=== PATIENT | male | born 1995 | race Caucasian/White ===

== ENCOUNTER 2023-10-11 10:46 | Emergency (ER) | payer OTHER, SELFPAY ==
[2023-10-11 11:05] VITALS: BP 136/80; PULSE 105; RESP 16; TEMP 37.2; O2SAT 100
--- NOTE | 2023-10-11 11:10 | ED.WOUNDLAC ---
HPI - Wound/Laceration General Chief Complaint: Wound/Laceration Stated Complaint: Right Ear Injury Time Seen by Provider: 10/11/23 11:20 Source: patient and RN notes reviewed Mode of arrival: ambulatory Limitations: no limitations History of Present Illness HPI narrative: 28-year-old male presents with concern for fall and, neck pain, ear injury. Reports prior to arrival he was at work on a ladder when he has slid down the ladder approximately 6 ft, when he landed he fell over and hit the right side of his head on a metal table. He reports he felt woozy for a few minutes but did not pass out. He reports injury to the ear. He denies loss of consciousness, headache. Reports right-sided neck pain radiating to the shoulder. Denies numbness, tingling, weakness in any extremity. Location: face Related Data Allergies Allergy/AdvReac Type Severity Reaction Status Date / Time No Known Allergies Allergy Unverified 01/05/19 04:21 Review of Systems Review of Systems: CONSTITUTIONAL: Denies malaise, chills, sweats, or fever. SKIN: Reports laceration to the right earlobe MUSCULOSKELETAL: Reports right neck pain NEUROLOGIC: Denies numbness, weakness All systems reviewed & are unremarkable except as noted in HPI and below PMFSH Family History Family History (Updated 07/22/16 @ 13:09 by DOCTOR UNKNOWN) Mother Patient's mother is in good health Father Family history unknown Social History Social History Smoking status: Never smoker Second hand tobacco smoke exposure: No Alcohol intake: current Comments At time of signature, agree with nursing past medical, surgical, social and family history. There is no relevant family history pertinent to the presenting complaint Exam Narrative: GENERAL: Well-appearing, well-nourished, and in no acute distress. HEAD: Normocephalic EYES: PERRLA, conjunctivae clear NECK: In C-collar due to neck pain/injury CHEST: Speaks in full sentences. No respiratory distress. HEART: Regular rate and rhythm. Normal and equal peripheral pulses. EXTREMITIES: Strength, sensation, range of motion equal bilaterally in upper and lower extremities SKIN: Warn, dry, intact, pink. 2 cm linear laceration to the earlobe into the subcutaneous tissue, not involving the cartilage NEURO: Alert and oriented x3. PSYCH: Normal mood and affect HENMT: Outer ear/TM images: 1. Laceration into the subcutaneous tissue Course Course Emergency Course: C-Collar placed Patient is aware of diagnosis, understands and agrees to treatment plan. Anticipatory guidance given. Patient agrees to follow-up as directed and is aware of reasons to seek care at the emergency department. Portions of this record may have been created with voice recognition software Level of Care: Express Care Visit Vital Signs Vital signs: Vital Signs Temperature 98.9 F 10/11/23 11:05 Pulse Rate 105 H 10/11/23 11:05 Respiratory Rate 16 10/11/23 11:05 Blood Pressure 136/80 10/11/23 11:05 Pulse Oximetry 100 10/11/23 11:05 Oxygen Delivery Room Air 10/11/23 11:05 Temperature 98.9 F 10/11/23 11:05 Pulse Rate 105 H 10/11/23 11:05 Respiratory Rate 16 10/11/23 11:05 Blood Pressure 136/80 10/11/23 11:05 Pulse Oximetry 100 10/11/23 11:05 Oxygen Delivery Room Air 10/11/23 11:05 Reviewed. Transfer Transfered to: Ángel Transfer rationale: Neck pain after fall <5ft Accepting physician: Michael Aldana comments: private vehicle, driven by friend Procedures Laceration Laceration 1: Date: 10/11/23 Time: 11:23 Site: other (ear) Side (If applicable): right Size (cm): 2 Description: linear Depth: simple, single layer Local Anesthetic: lidocaine 1% Amount of anesthesia used (mL): 2 Pre-repair: wound explored and irrigated ====== Skin Level ====== Skin layer closed with: nylon Size (cm): 5-0
[2023-10-11] MEDS: ACETAMINOPHEN 500 MG TABLET 1000 MG PO (11:49)
== END 2023-10-11 11:58 | disposition short-term general hospital (02) ==
PROVIDERS: Emergency Provider Nurse Practitioner
DX: S01.311A Laceration without foreign body of right ear, initial encounter (principal); M54.2 Cervicalgia; W10.9XXA Fall (on) (from) unspecified stairs and steps, initial encounter; Y99.0 Civilian activity done for income or pay
CPT/HCPCS: 12011; 99213; A9270; G0463; L0140

== ENCOUNTER 2023-10-11 12:17 | Emergency (ER) | payer OTHER, SELFPAY ==
--- NOTE | ~2023-10-11 | CT_ITS ---
EXAMINATION: CT brain wo con DATE: 10/11/2023 14:57 INDICATION: fall . TECHNIQUE: Computed tomography (CT) of the head was performed without intravenous contrast. The mA wa s adjusted according to patient size. Iterative reconstruction technique was employed. The dose-lengt h product was 605.33 mGy-cm. COMPARISON: None. FINDINGS: No acute intracranial hemorrhage or extra-axial fluid collection. No hydrocephalus, mass, or herniation. No acute ischemic infarct. Unremarkable dural venous sinus attenuation. No acute osseous abnormality. Ethmoid and bilateral maxillary mucosal thickening, the remaining aerated spaces are clear. IMPRESSION: No acute intracranial process. Reviewed, dictated and finalized at location K. [employer]
--- NOTE | ~2023-10-11 | CT_ITS ---
EXAMINATION: CT cervical spine wo con DATE: 10/11/2023 14:57 INDICATION: neck pain, fall TECHNIQUE: Computed tomography (CT) of the cervical spine was performed without intravenous contrast. Automated exposure control and iterative reconstruction technique were employed. The dose-length pro duct was 212.43 mGy-cm. COMPARISON: None. FINDINGS: Vertebral Body Alignment: Intact. Minimal reversal of the cervical lordosis centered at C5. Craniocervical and atlantoaxial alignment: No significant degenerative change. Alignment intact. Osseous structures/fracture: No evidence of a lytic or blastic process in the visualized spine. No e vidence of acute fracture. Cervical soft tissues: The paraspinal soft tissues planes are maintained. Biapical pleural scarring. Degenerative changes: Mild degenerative disc disease at C5-6. IMPRESSION: No acute fracture or traumatic malalignment in the cervical spine. Reviewed, dictated and finalized at location K. [employer]GN STUDENT ADVIS[employer]
[2023-10-11 12:33] VITALS: BP 140/70; PULSE 85; RESP 16; TEMP 36.8; O2SAT 99
--- NOTE | 2023-10-11 15:29 | ED.NECK ---
HPI - Neck Pain/Injury General Chief Complaint: Neck Pain/Injury Stated Complaint: fall/ear laceration Time Seen by Provider: 10/11/23 14:37 Source: patient Mode of arrival: ambulatory Limitations: no limitations History of Present Illness HPI Narrative: 28-year-old otherwise healthy who was sent in from urgent care with complaints of neck pain. Patient states that he fell of the ladder about 6 ft hit her left side of his ear sustained a laceration which was repaired at urgent care but still continues to have pain in the neck he was sent to ER for CT scan and for further evaluate. Patient states that he felt woozy after a fall but did not pass out. He denies any nausea or vomiting. No other injuries. MD complaint: neck pain and neck injury Place: work Radiation: right lateral and upper back Severity: moderate Quality: aching Duration: constant Relieving factors: none Context: fall Associated symptoms: none Treatments prior to arrival: cervical collar Related Data Allergies Allergy/AdvReac Type Severity Reaction Status Date / Time No Known Allergies Allergy Verified 10/11/23 12:29 Review of Systems Review of Systems: All systems reviewed & are unremarkable except as noted in HPI and below Constitutional: Constitutional: Reports no additional constitutional complaints Eyes: Eyes: Reports no additional eye complaints ENT: Reports system reviewed and no additional complaints, except as documented Cardiovascular: Cardiovascular: Reports no additional cardiovascular complaints Respiratory: Respiratory: Reports no additional respiratory complaints Gastrointestinal: Gastrointestinal: Reports no additional gastrointestinal complaints Musculoskeletal: Musculoskeletal: Reports as per HPI Neurologic: Reports system reviewed and no additional complaints, except as documented PMFSH Family History Family History Mother Patient's mother is in good health Father Family history unknown Social History Social History Smoking status: Never smoker Second hand tobacco smoke exposure: No Alcohol intake: current Exam Narrative: GENERAL: Well-appearing, well-nourished, and in no acute distress. HEAD: Normocephalic, atraumatic. EYES: PERRLA and EOMI. ENT: Nares clear, no rhinorrhea or epistaxis. Mucous membranes moist. NECK: Supplein C collar CHEST: Clear to auscultation. No respiratory distress. HEART: Regular rate and rhythm. No murmur heard. Normal peripheral pulses. ABDOMEN: Soft, nontender, nondistended, normal active bowel sounds. EXTREMITIES: Normal range of motion. No edema. SKIN: Warm, dry, no rash. NEURO: No focal deficits. Alert and oriented x3. PSYCH: Normal mood and affect. Course Course Emergency Course: Notified patient about his CT findings. Recommended to take ibuprofen for pain, follow-up with his primary doctor as needed Vital Signs Vital signs: Vital Signs Temperature 36.8 C 10/11/23 12:33 Pulse Rate 85 10/11/23 12:33 Respiratory Rate 16 10/11/23 12:33 Blood Pressure 140/70 10/11/23 12:33 Pulse Oximetry 99 10/11/23 12:33 Oxygen Delivery Room Air 10/11/23 12:33 Temperature 36.8 C 10/11/23 12:33 Pulse Rate 85 10/11/23 12:33 Respiratory Rate 16 10/11/23 12:33 Blood Pressure 140/70 10/11/23 12:33 Pulse Oximetry 99 10/11/23 12:33 Oxygen Delivery Room Air 10/11/23 12:33 MDM - Neck Pain/Injury MDM Narrative Medical decision making narrative: 28-year-old with a fall now having neck pain will obtain a CT of the head and C-spine his laceration of the right ear has been repaired at urgent care which presently does not take any tension. Differential Diagnosis Differential diagnosis: Likely disc disorder of cervical region, whiplash injury to neck, closed subluxation of cervical spine and fracture of cervical spine without lesion of spinal
[2023-10-11] MEDS: HYDROcodone/acetaminophen (*CRX) 5-325 MG TABLET 1 TAB PO (15:35)
[2023-10-11 15:43] VITALS: BP 130/70; PULSE 76; RESP 20; O2SAT 100
== END 2023-10-11 15:45 | disposition home or self-care (01) ==
PROVIDERS: Emergency Provider Family Medicine
DX: M54.2 Cervicalgia (principal); S16.1XXA Strain of muscle, fascia and tendon at neck level, initial encounter; W11.XXXA Fall on and from ladder, initial encounter
CPT/HCPCS: 70450; 72125; 99284; A9270; L0140

== ENCOUNTER 2023-12-14 09:03 | Emergency (ER) | payer BC, SELFPAY ==
[2023-12-14 09:16] VITALS: BP 133/80; PULSE 77; RESP 16; TEMP 36.4; O2SAT 100
--- NOTE | 2023-12-14 09:44 | ED.GENADULT ---
HPI - General Adult General Chief complaint: Upper Respiratory Infection Stated complaint: dizziness,SOB,chest pain,fatigue Time Seen by Provider: 12/14/23 09:28 Source: patient and RN notes reviewed Mode of arrival: ambulatory Limitations: no limitations History of Present Illness HPI narrative: Patient presents today complaining of a severe headache that started 3 days ago and lasted 24-48 hours which included photophobia and 1 episode of vomiting. At that time he also experienced sweats, chills, subjective fever. After resolution of the headache patient started experiencing nasal congestion and sinus pressure with fatigue, body aches, dizziness, left-sided chest pain with shortness of breath with exertion. Denies cough or sore throat. Denies diarrhea or any further vomiting. He currently rates his discomfort 4/10 and has been taking allergy medication, cold and flu medicine as well as Tylenol with some relief. History of tonsillectomy and adenoidectomy, ADHD medicine medicated. Patient vapes. No history of asthma or COPD. Related Data Allergies Allergy/AdvReac Type Severity Reaction Status Date / Time No Known Allergies Allergy Verified 12/14/23 09:13 Review of Systems Review of Systems: CONSTITUTIONAL:+ fever, body aches, fatigue, sweats, chills EYES: Denies visual changes, redness, or discharge. ENT: Denies sore throat, or otalgia.+ rhinorrhea, congestion CARDIOVASCULAR: Denies palpitations, or edema.+ chest pain RESPIRATORY: Denies cough.+ shortness of breath with exertion GASTROINTESTINAL: Denies abdominal pain, nausea, vomiting, or diarrhea. GENITOURINARY: Denies dysuria or hematuria. SKIN: Denies rash, itching, or wounds. MUSCULOSKELETAL: Denies back pain, joint pain, or myalgia. NEUROLOGIC: Denies numbness, tingling, or weakness.+ dizziness, headache-resolved PSYCH: Denies depression or anxiety. [facility] Family History Family History Mother Patient's mother is in good health Father Family history unknown Social History Social History (Updated 12/14/23 @ 09:47 by SONALI Rincon, ) Smoking status: Current every day smoker Tobacco type: e-cigarettes/vaping Second hand tobacco smoke exposure: No Alcohol intake: current Exam Narrative: GENERAL: Well-appearing, well-nourished, and in no acute distress. HEAD: Normocephalic, atraumatic. EYES: EOMI. PERRL. No nystagmus. No redness or drainage. Conjunctivae normal. ENT: Mucous membranes pink and moist. Nares clear. + rhinorrhea. TMs normal bilaterally. Throat normal. Uvula midline. NECK: Normal AROM. Supple. No lymphadenopathy. CHEST: No respiratory distress. Clear to auscultation. Chest is nontender HEART: Regular rate and rhythm. No murmur appreciated. Normal peripheral pulses. EXTREMITIES: Normal range of motion. No edema. Hand interactive media marketing director equal and strong. Dorsiflexion and plantar flexion equal and strong against resistance SKIN: Warm, dry, no rash. Capillary refill normal. Normal skin turgor. NEURO: No focal deficits. Alert and oriented x3. Gait steady. No drift. PSYCH: Normal affect. No signs of depression or anxiety. Course Course Level of Care: Express Care Visit Vital Signs Vital signs: Vital Signs Temperature 97.5 F L 12/14/23 09:16 Pulse Rate 77 12/14/23 09:16 Respiratory Rate 16 12/14/23 09:16 Blood Pressure 133/80 12/14/23 09:16 Pulse Oximetry 100 12/14/23 09:16 Oxygen Delivery Room Air 12/14/23 09:16 Temperature 97.5 F L 12/14/23 09:16 Pulse Rate 77 12/14/23 09:16 Respiratory Rate 16 12/14/23 09:16 Blood Pressure 133/80 12/14/23 09:16 Pulse Oximetry 100 12/14/23 09:16 Oxygen Delivery Room Air 12/14/23 09:16 Reviewed Medical Decision Making MDM Narrative Medical decision making narrative: Influenza B positive. Discussed results with patient and as well as suggestions for OTC meds. Will send
== END 2023-12-14 10:06 | disposition home or self-care (01) ==
PROVIDERS: Emergency Provider Nurse Practitioner
DX: J10.1 Influenza due to other identified influenza virus with other respiratory manifestations (principal); F17.290 Nicotine dependence, other tobacco product, uncomplicated; Z20.822 Contact with and (suspected) exposure to COVID-19
CPT/HCPCS: 87426; 87804; 99213; G0463

== ENCOUNTER 2024-07-04 15:15 | Emergency (ER) | payer BC, SELFPAY ==
[2024-07-04 15:23] VITALS: BP 131/85; PULSE 119; RESP 19; TEMP 37.2; O2SAT 100
--- NOTE | 2024-07-04 16:40 | ED.GENADULT ---
HPI - General Adult General Chief complaint: Anxiety Stated complaint: Anxiety/ Fast Heart Rate Time Seen by Provider: 07/04/24 15:40 Source: patient and RN notes reviewed Mode of arrival: ambulatory Limitations: no limitations History of Present Illness HPI narrative: Patient presents today complaining of panic attack. Symptoms include shortness of breath, unable to get a deep breath, headache, jitteriness. He woke up in the middle of the night last night complaining of chest pain, racing heart. He called 911 and was evaluated by paramedics in his home. He declined EMS transport at that time and went back to sleep for couple of hours. The rest of the day he states he has had low level anxiety but wanted to come in for evaluation this evening. He has had panic attacks in the past. Is not currently on any medication for anxiety. Related Data Allergies Allergy/AdvReac Type Severity Reaction Status Date / Time No Known Allergies Allergy Verified 07/04/24 15:17 Review of Systems Review of Systems: CONSTITUTIONAL: Denies body aches, fever, chills, or sweats. EYES: Denies visual changes, redness, or discharge. ENT: Denies rhinorrhea, congestion, sore throat, or otalgia. CARDIOVASCULAR: Denies chest pain, palpitations, or edema. RESPIRATORY: Denies cough. + shortness of breath GASTROINTESTINAL: Denies abdominal pain, nausea, vomiting, or diarrhea. GENITOURINARY: Denies dysuria or hematuria. SKIN: Denies rash, itching, or wounds. MUSCULOSKELETAL: Denies back pain, joint pain, or myalgia. NEUROLOGIC: Denies numbness, tingling, or weakness.+ headache PSYCH: + anxiety [facility] Family History Family History Mother Patient's mother is in good health Father Family history unknown Social History Social History Smoking status: Current every day smoker Tobacco type: e-cigarettes/vaping Second hand tobacco smoke exposure: No Alcohol intake: current Substance use type: marijuana Comments At time of signature, I have reviewed and agree with nursing past medical, surgical, social and family history unless otherwise noted. Please see nursing chart for further information. There is no relevant family history pertinent to the presenting complaint Exam Narrative: GENERAL: Well-appearing, well-nourished, and in no acute distress. HEAD: Normocephalic, atraumatic. EYES: EOMI. No redness or drainage. Conjunctivae normal. ENT: Mucous membranes pink and moist. NECK: Normal AROM. CHEST: No respiratory distress. Clear to auscultation. HEART: Regular rate and rhythm. No murmur appreciated. EXTREMITIES: Normal range of motion. No edema. SKIN: Warm, dry, no rash. Capillary refill normal. Normal skin turgor. NEURO: No focal deficits. Alert and oriented x3. Gait steady. PSYCH: Mildly anxious Course Course Level of Care: Express Care Visit Vital Signs Vital signs: Vital Signs Temperature 98.9 F 07/04/24 15:23 Pulse Rate 119 H 07/04/24 15:23 Respiratory Rate 19 07/04/24 15:23 Blood Pressure 131/85 07/04/24 15:23 Pulse Oximetry 100 07/04/24 15:23 Oxygen Delivery Room Air 07/04/24 15:23 Temperature 98.9 F 07/04/24 15:23 Pulse Rate 119 H 07/04/24 15:23 Respiratory Rate 19 07/04/24 15:23 Blood Pressure 131/85 07/04/24 15:23 Pulse Oximetry 100 07/04/24 15:23 Oxygen Delivery Room Air 07/04/24 15:23 Reviewed Medical Decision Making MDM Narrative Medical decision making narrative: Patient states his anxiety has somewhat decreased during his visit here today. Heart rate is down to 90 during my exam. Will prescribe some hydroxyzine for some symptom control. Patient will call and schedule a follow-up visit with his PCP. ED precautions given. Differential Diagnosis Differential Diagnosis: Panic attack, anxiety Vital Signs Vital Signs: Vital Signs
[2024-07-04 16:45] VITALS: PULSE 90
== END 2024-07-04 16:50 | disposition home or self-care (01) ==
PROVIDERS: Emergency Provider Nurse Practitioner
DX: F41.9 Anxiety disorder, unspecified (principal); F17.290 Nicotine dependence, other tobacco product, uncomplicated; F12.90 Cannabis use, unspecified, uncomplicated
CPT/HCPCS: 99213; G0463

== ENCOUNTER 2025-08-18 10:14 | Emergency (ER) | payer OTHER, SELFPAY ==
--- NOTE | 2025-08-18 10:15 | ED_ITS ---
HPI - Back Pain/Injury General Chief Complaint: Back Pain/Injury Stated Complaint: Back Pain Time Seen by Provider: 08/18/25 10:14 Source: patient Mode of arrival: ambulatory Limitations: no limitations History of Present Illness HPI Narrative: Andrei is a 30-year-old male patient presenting to the clinic today with complaints of low back pain x1 day. He reports he was trying to jump to reach a tree limb yesterday to cut it down and felt a pull in his back. Took 400mg of Ibuprofen yesterday and this morning- has also applied heat and ice. Has difficulty getting up this morning out of bed due to the pain. Rates pain 7/10 currently. Pain worsen with movement. No saddles anesth or loss of bowel/bladder. Related Data Allergies Allergy/AdvReac Type Severity Reaction Status Date / Time No Known Allergies Allergy Verified 08/18/25 10:25 Review of Systems Review of Systems: Pertinent positives per HPI. Patient denies any fever, chills, rash, headache, visual changes, dizziness, cough, runny nose, sore throat, shortness of breath, chest pain, palpitations, nausea, vomiting, diarrhea, constipation, abdominal pain, or any urinary issues. [facility] Past Medical History Medical History Anxiety Family History Family History Mother Patient's mother is in good health Father Family history unknown Grandparent Alcoholism in family member Hypertension Social History Social History Social History: caffeine: A few sodas a day and a energy drink every once in a while Smoking status: Current every day smoker Tobacco type: e-cigarettes/vaping Second hand tobacco smoke exposure: No Alcohol intake: never Substance use: former Substance use type: marijuana Do You Feel Safe in your Home?: Yes Lack of Transportation: No Lack of Food: Never True Current Housing: I Have Housing Concerned About Future Housing: No Difficulty Paying Gas/Electric Bills: No Difficulty Paying for Meds: No Currently Unemployed: No Education: High School Diploma/GED Difficulty w/ Childcare or Family Care: No Living arrangements: with roommate(s) Occupation/Education: occupation Gender identity (if verbalized by the patient): Male Sexual Orientation (if Verbalized by the Patient): Straight or Heterosexual Agree to blood products: Yes Comments At the time of my signature, I reviewed and agree with the nursing past medical, surgical, social, and family history. There is no relevant family history pertinent to the patient complaint. Exam Narrative: General: Well-developed, well nourished, in no apparent distress Head: Normocephalic, atraumatic. Cardio: Regular rate and rhythm, s1 and s2 normal, no murmur appreciated. Resp: Clear to auscultation bilaterally, no rhonchi, rales, wheezing or rubs. Musculoskeletal: No deformity, low back/paraspinous musculatures tender to palpation bilaterally, limited range of motion due to pain with flexion and extension of the low back, muscle strength strong and equal in BLE. SLT positive on the right at approximately 20? and positive on the left at approximately 45?, patellar reflexes 2/4 bilaterally, negative foot drop, cautious moving gait and station Course Course Emergency Course: Portions of this record may have been created with voice recognition software. Level of Care: Express Care Visit Vital Signs Vital signs: Vital Signs Temperature 37.1 C 08/18/25 10:24 Pulse Rate 91 08/18/25 10:24 Respiratory Rate 18 08/18/25 10:24 Blood Pressure 129/84 08/18/25 10:24 Pulse Oximetry 100 08/18/25 10:24 Oxygen Delivery Room Air 08/18/25 10:24 Temperature 37.1 C 08/18/25 10:24 Pulse Rate 91 08/18/25 10:24 Respiratory Rate 18 08/18/25 10:24 Blood Pressure 129/84 08/18/25 10:24 Pulse Oximetry 100 08/18/25 10:24 Oxygen Delivery Room Air 08/18/25 10:24 Vital signs reviewed MDM - Back Pain/Injury MDM Narrative Medical decision making narrative: At the time of visit patient is resting comfortably on the exam table. Patient appears to be nontoxic. Complaints of low back pain x1 day. He reports he was trying to jump to reach a tree limb yesterday to cut it down and felt a pull in his back. Took 400mg of Ibuprofen yesterday and this morning- has also applied heat and ice. Has difficulty getting up this morning out of bed due to the pain. Rates pain 7/10 currently. Pain worsen with movement. No saddles anesth. or loss of bowel/bladder. On exam patient has tenderness to palpation over the lumbar spine and over the paraspinous musculature bilaterally, pain with straight leg test on the right at approximately 20? and 45? on the left, negative for foot drop, patellar reflexes 2+ bilaterally, pain with bending and standing. Plan: I suspect patient has low back strain/acute low back pain. Description for Medrol Dosepak and baclofen was sent to the pharmacy. Work note was given. Supportive measures were discussed with the patient and they voiced understanding discharge instructions and agrees to treatment plan. Return precautions reviewed Differential Diagnosis Differential diagnosis: Likely lumbar radiculopathy, sciatica, strain of lumbar region, discitis and other (Vertebral fracture) Discharge Plan Discharge Clinical Impression: Acute bilateral low back pain Qualifiers: Sciatica presence: without sciatica Qualified Code(s): M54.50 - Low back pain, unspecified Acute myofascial strain of lumbosacral region Qualifiers: Encounter type: initial encounter Qualified Code(s): S39.012A - Strain of muscle, fascia and tendon of lower back, initial encounter Patient Disposition: Home Condition: Stable Instructions: Antibiotic Form, Low Back Strain (ED), Lower Back Exercises (ED) Additional Instructions: Take any prescription medication only as prescribed-baclofen and Medrol Dosepak Be mindful of sedation precautions given to you if taking a muscle relaxer. May use heat or ice to the affected area Consider massage or chiropractor adjustment if this was discussed with provider May use blue emu, lidocaine patches, or asper cream to affected area- do not ap ply heat or ice directly over cream- can cause burn. Complete appropriate back stretching exercises. Follow up with your PCP in 3-5 days if symptom persist. Patient Language: Pashto Prescriptions: New methylprednisolone [Medrol (Bill)] 4 mg tablets,dose pack See Rx Instructions PO .COMPLEX Qty: 21 0RF Rx Instructions: orally per package directions baclofen 10 mg tablet 10 mg PO TID PRN (Reason: muscle spasm) 7 Days Qty: 21 0RF No Action hydroxyzine HCl 50 mg tablet 50 mg PO TID PRN (Reason: anxiety) Qty: 90 0RF Rx Instructions: Do not take while driving. May cause drowsiness. mirtazapine 7.5 mg tablet 7.5 mg PO QHS Qty: 90 0RF trazodone 100 mg tablet 100 mg PO QHS PRN (Reason: insomnia) Qty: 30 0RF Follow-up/Referrals: Norma Lewis, CLAUDIO, [employer] [Primary Care Provider, Internal Medicine] Stand Alone Forms: Work/School Release IP Time of Disposition: 10:30 Quality NIHSS Nursing Documentation ED NIHSS nursing documentation: reviewed/agree
[2025-08-18 10:24] VITALS: BP 129/84; PULSE 91; RESP 18; TEMP 37.1; O2SAT 100
== END 2025-08-18 10:38 | disposition home or self-care (01) ==
PROVIDERS: Emergency Provider Nurse Practitioner Family; PCP Clinical Nurse Specialist
DX: S39.012A Strain of muscle, fascia and tendon of lower back, initial encounter (principal); X50.9XXA Other and unspecified overexertion or strenuous movements or postures, initial encounter; F17.290 Nicotine dependence, other tobacco product, uncomplicated; F41.9 Anxiety disorder, unspecified
CPT/HCPCS: 99213; G0463